=== PATIENT | female | born 1975 | race Caucasian/White ===

== ENCOUNTER 2022-04-25 20:58 | Emergency (ER) | payer OTHER, BC ==
[2022-04-25] MEDS ORDERED: Bacitracin 1 PK ONE (21:54)
[2022-04-25] MEDS ORDERED: Lidocaine 1% w/Epinephrine 1:100K 20 ML VIAL ONE (21:54)
[2022-04-25] MEDS ORDERED: Boostrix 0.5 ML (Tdap) VIAL (>/=7 yrs of age) ONE (21:54)
[2022-04-25] MEDS ORDERED: Amoxicillin/Potassium Clav 875 MG TAB ONE (21:54)
== END 2022-04-25 23:43 | disposition home or self-care (01) ==
LOC: ERS 20:58
DX: S61.451A Open bite of right hand, initial encounter (principal); Z87.891 Personal history of nicotine dependence; W54.0XXA Bitten by dog, initial encounter
CPT/HCPCS: 12002; 90471; 90715

== ENCOUNTER 2022-05-06 19:31 | Emergency (ER) | payer BC | END 2022-05-06 22:06 | disposition home or self-care (01) | LOC: ERS 19:31 | DX: S61.511D Laceration without foreign body of right wrist, subsequent encounter (principal); W26.0XXD Contact with knife, subsequent encounter ==

== ENCOUNTER 2023-06-09 21:21 | Observation (INO) | payer BC, SELFPAY ==
[2023-06-09 22:17] LABS: #Basophils 0.1 thou/uL (0.0-0.2); #Eosinphils 0.2 thou/uL (0.0-0.7); #Monocytes 0.4 thou/uL (0.11-0.59); #Neutrophils 5.1 thou/uL (1.40-6.50); %Basophils 0.8 % (0.0-1.0); %Monocytes 4.4 % (0.0-10.0); %Neutrophils 59.6 % (42.0-75.0); Hematocrit 42.1 % (36.0-47.0); Hemoglobin 13.4 g/dL (12.0-16.0); Mean Corpuscular HGB CONC 31.8 g/dL (32.0-36.0); Mean Corpuscular Hemoglobin 26.3 pg (27.0-31.0); Mean Corpuscular Volume 82.7 fl (78.0-98.0); Mean Platelet Volume 9.4 fL (7.4-10.4); Platelet Count 328 10x3/uL (130-400); RBC Distribution Width 16.2 % (11.5-14.5); Red Blood Cell (RBC) Count 5.09 mill/uL (4.20-5.40); White Blood Cell (WBC) Count 8.6 10x3/uL (4.8-10.8)
[2023-06-09 22:33] LABS: ALT (SGPT) 22 U/L (8-55); AST (SGOT) 22 U/L (5-34); Albumin 4.2 g/dL (3.5-5.0); Alkaline Phosphatase 179 U/L (40-110); Anion Gap 11 mmol/L (10-20); BUN (Urea Nitrogen) 13 mg/dL (7.0-18.7); Bilirubin, Total 0.6 mg/dL (0.2-1.2); Calc. Creatinine Clearance 0 mL/min (70-130); Calcium 9.5 mg/dL (7.8-10.44); Carbon Dioxide 26 mmol/L (22-29); Chloride 107 mmol/L (98-107); Estimated GFR 106; Globulin 2.7 g/dL (2.4-3.5); Glucose 96 mg/dL (70-105); Potassium 4.1 mmol/L (3.5-5.1); Protein, Total 6.9 g/dL (6.0-8.3); Sodium 140 mmol/L (136-145)
[2023-06-09 22:38] LABS: Troponin I Less than 0.010 ng/mL (< 0.028)
[2023-06-09 23:13] LABS: Lipase 36 U/L (8-78)
[2023-06-09 23:21] LABS: Iron 37 ug/dL (50-170); Iron Binding Capacity, Total 460 mcg/dL (265-497)
[2023-06-10] MEDS ORDERED: Aspirin Chewable 81 MG TAB ONE (00:41)
[2023-06-10] MEDS ORDERED: Ondansetron ODT 4 MG TAB SL PRN (01:30)
[2023-06-10] MEDS ORDERED: Ondansetron PF 4 MG/2 ML Vial IVP PRN ×2 (01:30→02:55)
[2023-06-10 02:40] LABS: Troponin I Less than 0.010 ng/mL (< 0.028)
[2023-06-10] MEDS ORDERED: Acetaminophen 325 MG TAB PO PRN (02:55)
[2023-06-10] MEDS ORDERED: Ondansetron ODT 4 MG TAB PO PRN (02:55)
[2023-06-10 04:14] VITALS: BMI 48.8
[2023-06-10] MEDS: Iron, Sodium Ferric Gluconate 125 MG in Sodium Chloride 0.9% 100 ML IVPB SCH (04:23)
[2023-06-10 05:41] LABS: Troponin I Less than 0.010 ng/mL (< 0.028)
[2023-06-10 09:16] VITALS: TEMP 97.7
[2023-06-10] MEDS ORDERED: Acetaminophen 325 MG TAB ONE (09:23)
[2023-06-10] MEDS ORDERED: Famotidine/PF 20 mg/2ml Vial ONE (09:24)
[2023-06-10] MEDS: Acetaminophen 325 MG TAB PO PRN (09:30)
[2023-06-10] MEDS: Famotidine/PF 20 mg/2ml Vial SLOW IVP SCH (09:33)
[2023-06-10] MEDS: Famotidine 20 MG TAB PO SCH (09:34)
[2023-06-10 10:00] LABS: Bacteria/HPF None Seen HPF (None Seen); Bilirubin Negative (Negative); Blood, Urine Negative (Negative); CAUTI Indications for Culture Dysuria,urgency,freq; Clarity Clear (Clear); Glucose, Urine (Dipstick) Normal (Negative); Ketone, Urine Negative (Negative); Leukocyte Negative Leu/uL (Negative); Nitrite Negative (Negative); Protein, Urine (Dipstick) Negative (Neg-Trace); RBC/HPF 0-3 HPF (0-3); Specific Gravity, Urine 1.035 (1.002-1.036); Squamous Epithelial None Seen HPF (0-3); Urobilinogen Normal mg/dL (Less than 2); WBC/HPF 0-3 HPF (0-3); pH, Urine 5.5 (5.0-9.0)
[2023-06-10 10:02] LABS: Urine Culture Reflex No No
[2023-06-10] MEDS ORDERED: Meclizine HCl 25 MG TAB ONE (11:44)
[2023-06-10] MEDS ORDERED: Ketorolac Tromethamine 30 MG (1 mL) VIAL ONE (11:44)
[2023-06-10] MEDS: Meclizine HCl 25 MG TAB PO SCH (11:49)
[2023-06-10] MEDS: Ketorolac Tromethamine 30 MG (1 mL) VIAL IVP SCH (11:58)
[2023-06-10] MEDS ORDERED: Iopamidol-370 76% 500 ML MDV (1 ML CHARGE) ONE (13:47)
[2023-06-10] MEDS: Sodium Chloride 0.9% 1,000 ML IV SCH (14:33)
[2023-06-10] MEDS: SUMAtriptan Succinate 50 MG TAB PO SCH (14:34)
[2023-06-10 18:22] VITALS: BP 128/72
== END 2023-06-10 18:27 | disposition home or self-care (01) ==
LOC: ERS 21:21 → ERHOLD 06-10 01:17
PROVIDERS: ADMIT Student in an Organized Health Care Education/Training Program; ATTEND Emergency Medicine
DX: R42 Dizziness and giddiness (principal); D50.9 Iron deficiency anemia, unspecified; D51.0 Vitamin B12 deficiency anemia due to intrinsic factor deficiency; R07.9 Chest pain, unspecified; Z88.5 Allergy status to narcotic agent; Z90.49 Acquired absence of other specified parts of digestive tract; Z91.011 Allergy to milk products; Z91.02 Food additives allergy status
CPT/HCPCS: 36415; 70450; 71045; 71275; 80053; 81001; 82728; 83540; 83550; 83690; 83735; 84484; 85025; 93005; 96374; G0378; J1885; J2916; J3490; J7050; Q9967; S0028

== ENCOUNTER 2024-11-16 13:16 | Emergency (ER) | payer SELFPAY ==
[2024-11-16 14:21] LABS: Bacteria/HPF None Seen HPF (None Seen); CAUTI Indications for Culture Dysuria,urgency,freq; Glucose, Urine (Dipstick) Normal (Negative); Leukocyte Negative Leu/uL (Negative); Protein, Urine (Dipstick) Negative (Neg-Trace); RBC/HPF 0-3 HPF (0-3); Specific Gravity, Urine 1.013 (1.002-1.036); WBC/HPF 0-3 HPF (0-3)
[2024-11-16 14:24] LABS: Urine Culture Reflex No No
[2024-11-16 20:11] LABS: #Basophils 0.06 10x3/uL (0.0-0.2); #Eosinophils 0.14 10x3/uL (0.0-0.7); #Monocytes 0.41 10x3/uL (0.11-0.59); #Neutrophils 4.96 10x3/uL (1.40-6.50); %Basophils 0.8 % (0.0-1.0); %Eosinophils 1.8 % (0.0-10.0); %Lymphocytes 28.4 % (21.0-51.0); %Monocytes 5.2 % (0.0-10.0); %Neutrophils 63.5 % (42.0-75.0); Hematocrit 39.0 % (36.0-47.0); Hemoglobin 12.8 g/dL (12.0-16.0); Mean Corpuscular Hemoglobin 30.3 pg (27.0-31.0); Mean Corpuscular Volume 92.2 fL (78.0-98.0); Platelet Count 270 10x3/uL (130-400); Red Blood Cell (RBC) Count 4.23 mill/uL (4.20-5.40); White Blood Cell (WBC) Count 7.81 10x3/uL (4.8-10.8)
[2024-11-16 20:29] LABS: ALT (SGPT) 35 U/L (Less than 34); AST (SGOT) 34 U/L (11-34); Albumin 4.0 g/dL (3.1-4.5); Alkaline Phosphatase 221 U/L (40-110); Anion Gap 16 mmol/L (10-20); BUN (Urea Nitrogen) 12 mg/dL (9.8-20.1); Bilirubin, Total 0.6 mg/dL (0.3-1.2); Calc. Creatinine Clearance 0 mL/min (70-130); Calcium 9.4 mg/dL (7.8-10.44); Carbon Dioxide 23 mmol/L (22-29); Chloride 108 mmol/L (98-107); Globulin 2.5 g/dL (2.4-3.5); Glucose 87 mg/dL (70-105); Iron Binding Capacity, Total 401 mcg/dL (265-497); Potassium 3.8 mmol/L (3.5-5.1); Sodium 143 mmol/L (136-145)
[2024-11-16 20:50] LABS: Ferritin 14.14 ng/mL (10-291); Thyroid Stimulating Hormone 2.3436 uIU/mL (0.35-4.94)
== END 2024-11-16 22:02 | disposition home or self-care (01) ==
LOC: ERS 13:16
DX: R55 Syncope and collapse (principal); R42 Dizziness and giddiness; R53.83 Other fatigue
CPT/HCPCS: 36415; 70450; 71045; 80053; 81001; 82728; 83550; 84443; 84484; 85025; 93005